=== PATIENT | female | born 1995 | race Caucasian/White ===

== ENCOUNTER → 2018-12-21 16:52 | Outpatient (CLI) | payer SELFPAY ==
--- NOTE | 2018-12-21 | LES_PTH ---
PATIENT: JANELL GIRON LOC: [facility] U#:[id number] AGE/SX: 30/F ROOM: RE12/21/[address]: Dr. Rolanda Marte MD : 1995 BED: DIS: SPEC #: [id number] RECD: 12/21/18 16:38 STATUS: DIPAK ELLIE #: [id number] CORWIN: 12/21/18 00:[address]: Rolanda Marte DEPT: SURGICAL PATHOLOGY RECD BY: Devon Arzate ENTERED: 12/22/18 09:43 SP TYPE: Lesion OTHR DR: Dr. Mini Poole MD Tissues: Skin of vulva Procedures: Surgery Specimen Level IV HEADER OPERATION: Not noted PRE-OP DIAGNOSIS: Vulvar lesion TISSUE SUBMITTED: Vulvar lesion MICROSCOPIC DIAGNOSIS Vulvar lesion: Fibroepithelial polyp with smooth muscle bundles, entirely excised. CE:briseyda 12/23/18 COMMENT Immunohistochemistry ([id number]) supports the above diagnosis. Please see separate [facility] consultation report ([id number]). MICROSCOPIC DESCRIPTION Slides are reviewed. GROSS DESCRIPTION Received in fixative is one container labeled with the patient's name and designated vulvar lesion. The specimen consists of a portion of skin with underlying nodular thickening. The skin surface measures 1.4 x 1 cm and the entire specimen measures 1.4 x 1 cm and is excised to a depth of 1.5 cm. The excisional margin is inked black and the specimen is bisected. The specimen is totally submitted in one cassette. / CE:briseyda 12/22/18 TC:1 CPT: 15206
--- NOTE | 2018-12-21 | IMM_PTH ---
PATIENT: JANELL GIRON LOC: [facility] U#:[id number] AGE/SX: 30/F ROOM: RE12/21/[address]: Dr. Rolanda Marte MD : 1995 BED: DIS: SPEC #: [id number] RECD: 12/23/18 10:26 STATUS: DIPAK REQ #: [id number] CORWIN: 12/21/18 00:[address]: Rolanda Marte DEPT: IMMUNOHISTOCHEMISTRY RECD BY: Skylar Sal ENTERED: 12/23/18 10:27 SP TYPE: IMMUNO OTHR DR: Dr. Mini Poole MD Tissues: Vulva, NOS Procedures: SMA (add) CD31 (add) CD34 (add) DESMIN (add) DC (initial) PHYSICIAN & INSTITUTION [place] [id number] SPECIMEN INFORMATION: Tissue Source: Vulvar lesion Clinical Info: Vulvar lesion Specimen Number: [id number] CPT code: 15763, 15178 x4 METHODOLOGY: Deparaffinized sections of prefer/formalin-fixed tissue or PAP/DQ stained slides are incubated with monoclonal/polyclonal antibodies/oligonucleotide probes. Localization is made via biotin free immunoperoxidase method. Appropriate controls are performed and reacted as expected. Results on target cell population are indicated in the following table: RESULTS: ANTIBODY / CLONE RESULT Actin (1A4) positive Desmin (CE-R-11) positive CD31 (YOUNG/70A) positive CD34 (QBEnd-10) positive DC (1E2) negative These tests were developed and their performance characteristics determined by [facility]. They may not have been cleared or approved by the [place]. Food and Drug Administration. The FDA has determined that such clearance or approval is not necessary. INTERPRETATION: Vulvar lesion: The results of immunohistochemistry support the diagnosis of fibroepithelial polyp with smooth muscle bundles. CE:[email or web address] 12/23/18
[2018-12-21 14:06] VITALS: BMI 27.6
== END ==
PROVIDERS: Referring Provider Obstetrics & Gynecology; Visit Provider Obstetrics & Gynecology
DX: N90.89 Other specified noninflammatory disorders of vulva and perineum (principal)
CPT/HCPCS: 88305; 88341; 88342